=== PATIENT | male | born 1990 | race Caucasian/White ===

== ENCOUNTER 2024-12-31 21:00 | Emergency (ER) | payer SELFPAY ==
[2024-12-31 21:02] VITALS: BP 137/82; PULSE 57; RESP 20; TEMP 36.6; O2SAT 100; BMI 27.4
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
[2024-12-31 21:25] VITALS: BP 125/63; PULSE 64; RESP 18; O2SAT 95
[2024-12-31] MEDS: iohexol 350 mg/mL 500 mL Btl (per mL) IV (21:25)
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
[2024-12-31 21:46] VITALS: RESP 18
[2024-12-31] MEDS: ondansetron 2 mg/ML SDV 2 mL 4 MG IVP (21:46)
[2024-12-31] MEDS: morphine 4 mg/mL SDV 1 mL IVP (21:46)
[2024-12-31 22:08] VITALS: BP 126/81; PULSE 60; RESP 18; O2SAT 98
== END 2024-12-31 22:15 | disposition home or self-care (01) ==
PROVIDERS: Emergency Provider Emergency Medicine
DX: S30.1XXA Contusion of abdominal wall, initial encounter (principal); V89.2XXA Person injured in unspecified motor-vehicle accident, traffic, initial encounter
CPT/HCPCS: 71260; 74177; 96374; 96375; 99285; J2270; J2405